=== PATIENT | female | born 1995 | race Caucasian/White ===

== ENCOUNTER 2020-12-02 07:21 | Emergency (ER) | payer MEDICAID, OTHER ==
[~2020-12-02] VITALS: Ht 157.5 cm; Wt 91.2 kg
[2020-12-02 07:28] VITALS: BP 99/64
[2020-12-02 08:22] LABS: BASOPHILS % (AUTO) 0.3 % (0.0-2.0); EOSINOPHILS # (AUTO) 0.1 K/uL (0-0.4); EOSINOPHILS % (AUTO) 0.8 % (0.0-4.0); LYMPHOCYTES # (AUTO) 2.1 K/uL (2.5-16.5); LYMPHOCYTES % (AUTO) 24.8 % (20.5-51.1); MEAN CORPUSCULAR HEMOGLOBIN 30 pg (27-31); MEAN CORPUSCULAR HGB CONC 34 g/dL (33-37); MEAN CORPUSCULAR VOLUME 88.8 fL (80-94); MONOCYTES # (AUTO) 0.5 K/uL (0.8-1.0); MONOCYTES % (AUTO) 5.6 % (1.7-9.3); NEUTROPHILS # (AUTO) 5.7 K/uL (1.8-7.7); NEUTROPHILS % (AUTO) 68.5 % (42.2-75.2); PLATELET COUNT (AUTO) 260 K/uL (140-450); RED BLOOD CELL COUNT(AUTO) 4.61 MIL/uL (4.20-5.40); WHITE BLOOD COUNT (AUTO) 8.3 K/uL (4.8-10.8)
[2020-12-02 08:27] LABS: BILIRUBIN,URINE NEGATIVE (NEGATIVE); BLOOD, URINE NEGATIVE (NEGATIVE); COLOR,URINE YELLOW (YELLOW); LEUKOCYTE ESTERASE ,URINE 1+ (NEGATIVE); NITRITE, URINE NEGATIVE (NEGATIVE); UGLUCOSE NEGATIVE (NEGATIVE)
[2020-12-02 08:28] LABS: APPEARANCE,URINE SLIGHTLY HAZY (CLEAR)
[2020-12-02 08:33] LABS: RBC,URINE 0-5 /HPF (0-5); WBC,URINE 0-5 /HPF (0-5)
[2020-12-02 10:25] VITALS: BP 99/64
== END 2020-12-02 10:25 | disposition home or self-care (01) ==
LOC: MED 07:21
DX: O26.891 Other specified pregnancy related conditions, first trimester (principal); R10.9 Unspecified abdominal pain; O21.9 Vomiting of pregnancy, unspecified; Z3A.09 9 weeks gestation of pregnancy
CPT/HCPCS: 36415; 76817; 81001; 81025; 84702; 85025; 86900; 86901; 87086; 99284

== ENCOUNTER 2021-01-17 23:14 | Emergency (ER) | payer OTHER ==
[~2021-01-17] VITALS: Ht 157.5 cm; Wt 89.8 kg
[2021-01-17 23:40] VITALS: BP 112/60
--- NOTE | 2021-01-17 23:43 | NUR ---
TO LOBBY A/W BED AMBULATORY
--- NOTE | 2021-01-18 00:45 | NUR ---
TO BED AMBULATORY
--- NOTE | 2021-01-18 00:55 | NUR ---
25 YO F BIB SELF WITH C/C OF VOMITTING X1DAY. PT STATED SHE IS 12 WKS . DENIES BEING SEEN YET FOR . -FEVER, COUGH. PT STATED THAT SHE HAS EPIGASTRIC PAIN 8/10 THAT RADIATES DOWN. PT STATES THAT SHE SEES LITTLE LIGHTS AND FEELS DIZZY. FALL PRECAUTIONS INITIATED. G 3 P0 A 1 L 3. PT PLACED IN GOWN. DENIES HX AND RX NKA
[2021-01-18 01:10] LABS: APPEARANCE,URINE CLEAR (CLEAR); BILIRUBIN,URINE 1+ (NEGATIVE); BLOOD, URINE NEGATIVE (NEGATIVE); COLOR,URINE YELLOW (YELLOW); LEUKOCYTE ESTERASE ,URINE TRACE (NEGATIVE); NITRITE, URINE NEGATIVE (NEGATIVE); UGLUCOSE NEGATIVE (NEGATIVE)
[2021-01-18 01:17] LABS: RBC,URINE 0-5 /HPF (0-5)
--- NOTE | 2021-01-18 01:32 | NUR ---
L&D RN AT BEDSIDE FOR T
[2021-01-18] MEDS ORDERED: ONDANSETRON 4 MG/2 ML VIAL IVP ONE (02:30)
[2021-01-18] MEDS ORDERED: ACETAMINOPHEN EXTRA STRENGTH 500 MG TAB PO ONE (02:30)
[2021-01-18] MEDS ORDERED: ONDANSETRON 4 MG ODT PO ONE (02:30)
[2021-01-18] MEDS ORDERED: NACL 0.9% 1,000 ML IV ONE (02:30)
--- NOTE | 2021-01-18 03:06 | NUR ---
PT IS SITTING UP IN BED. STATED SHE FEELS BETTER NOW. IS AT BED SIDE. BED LOCKED IN LOWEST POSITION, SIDE RAILS X2. ALL NEEDS MET AT THISTIME.
[2021-01-18] MEDS ORDERED: ONDA8TAB87 PO (03:29)
[2021-01-18] MEDS ORDERED: NITR100C7 PO (03:29)
[2021-01-18 03:37] VITALS: BP 112/60
--- NOTE | 2021-01-18 03:37 | NUR ---
Patient discharged with v/s stable. Written and verbal after care instructions given and explained. Patient alert, oriented and verbalized understanding of instructions. Ambulatory with steady gait. All questions addressed prior to discharge. ID band removed. Patient advised to follow up with PMD. Rx of MACROBID AND ZOFRAN given. Patient educated on indication of medication including possible reaction and side effects. Opportunity to ask questions provided and answered.
== END 2021-01-18 03:37 | disposition home or self-care (01) ==
LOC: MED 23:14
DX: O23.41 Unspecified infection of urinary tract in pregnancy, first trimester (principal); O21.8 Other vomiting complicating pregnancy; M54.5 Low back pain; Z3A.12 12 weeks gestation of pregnancy; Z90.49 Acquired absence of other specified parts of digestive tract
CPT/HCPCS: 81001; 81025; 87086; 96361; 96374; 99283; J2405; J7030

== ENCOUNTER 2022-06-01 16:12 | Observation (INO) | payer OTHER ==
[~2022-06-01] VITALS: Ht 153 cm; Wt 84.8 kg
[~2022-06-01 16:12] MED LIST: NITR100C7 PO; ONDA8TAB87 PO
--- NOTE | 2022-06-01 16:50 | NUR ---
PT TAKEN TO L&D
[2022-06-01 17:40] VITALS: BP 102/59
[2022-06-01] MEDS ORDERED: FERR-212 PO (18:04)
[2022-06-01] MEDS ORDERED: PRETAB PO (18:04)
[2022-06-01] MEDS ORDERED: OSC500 PO (18:04)
[2022-06-01] MEDS ORDERED: ACETAMINOPHEN 325 MG TAB ONE (18:28)
[2022-06-01] MEDS ORDERED: ACETAMINOPHEN 325 MG TAB PO ONE (18:30)
[2022-06-01] MEDS ORDERED: MUC600 PO (22:38)
[2022-06-01] MEDS ORDERED: TAM75 PO (22:38)
[2022-06-01] MEDS ORDERED: ACET-10509 PO (22:38)
[2022-06-01] MEDS ORDERED: ALBU0.0912 IH (22:38)
== END 2022-06-01 19:52 ==
LOC: MED 16:12 → MLD 16:55
PROVIDERS: ADMIT Obstetrics & Gynecology; ATTEND Obstetrics & Gynecology
DX: O36.8120 Decreased fetal movements, second trimester, not applicable or unspecified (principal); Z20.822 Contact with and (suspected) exposure to COVID-19; O26.892 Other specified pregnancy related conditions, second trimester; R50.9 Fever, unspecified; R05.9 Cough, unspecified; O99.891 Other specified diseases and conditions complicating pregnancy; M79.10 Myalgia, unspecified site; O99.512 Diseases of the respiratory system complicating pregnancy, second trimester; J00 Acute nasopharyngitis [common cold]; O26.812 Pregnancy related exhaustion and fatigue, second trimester; Z3A.22 22 weeks gestation of pregnancy
CPT/HCPCS: 76819; 87426; G0378; Q0092

== ENCOUNTER 2022-06-01 19:58 | Emergency (ER) | payer OTHER ==
[~2022-06-01] VITALS: Ht 160 cm; Wt 75.7 kg
[~2022-06-01 19:58] MED LIST changes: +FERR-212 PO; +OSC500 PO; +PRETAB PO
[2022-06-01 20:40] VITALS: BP 106/66
--- NOTE | 2022-06-01 20:44 | NUR ---
TO LOBBY A/W BED AMBULATORY
[2022-06-01] MEDS ORDERED: ACET-10509 PO (22:38)
[2022-06-01] MEDS ORDERED: ALBU0.0912 IH (22:38)
[2022-06-01] MEDS ORDERED: MUC600 PO (22:38)
[2022-06-01] MEDS ORDERED: TAM75 PO (22:38)
[2022-06-01 23:53] LABS: APPEARANCE,URINE CLEAR (CLEAR); BILIRUBIN,URINE NEGATIVE (NEGATIVE); BLOOD, URINE NEGATIVE (NEGATIVE); COLOR,URINE YELLOW (YELLOW); LEUKOCYTE ESTERASE ,URINE TRACE (NEGATIVE); NITRITE, URINE NEGATIVE (NEGATIVE); PH,URINE 6.5 (5.0-9.0); UGLUCOSE NEGATIVE (NEGATIVE)
[2022-06-01 23:58] LABS: RBC,URINE 0-5 /HPF (0-5); WBC,URINE 0-5 /HPF (0-5)
--- NOTE | 2022-06-02 00:12 | NUR ---
ERINN SEEN AND ASSESSED BY TRAE VERMA. Written and verbal after care instructions given and explained. Patient alert, oriented and verbalized understanding of instructions. Ambulatory with steady gait. All questions addressed prior to discharge. ID band removed. Patient advised to follow up with PMD. Rx of ACETAMINOPHEN, ALBUTEROL, MUCINEX, AND TAMIFLU given. Patient educated on indication of medication including possible reaction and side effects. Opportunity to ask questions provided and answered.
== END 2022-06-02 00:12 | disposition home or self-care (01) ==
LOC: MED 19:58
DX: J40 Bronchitis, not specified as acute or chronic (principal); J10.1 Influenza due to other identified influenza virus with other respiratory manifestations
CPT/HCPCS: 81001; 87086; 99283

== ENCOUNTER 2023-03-05 08:06 | Emergency (ER) | payer OTHER ==
[~2023-03-05] VITALS: Ht 152.4 cm; Wt 88.9 kg
[~2023-03-05 08:06] MED LIST changes: +ACET-10509 PO; +ALBU0.0912 IH; -FERR-212 PO; +MUC600 PO; -NITR100C7 PO; -ONDA8TAB87 PO; -OSC500 PO; -PRETAB PO; +TAM75 PO
[2023-03-05 08:41] VITALS: BP 128/74; PULSE 84; RESP 18; TEMP 98; O2SAT 98
[2023-03-05 10:16] VITALS: O2SAT 98
[2023-03-05] MEDS ORDERED: LIDOCAINE 5% 1 EA PATCH TP SCH (10:40)
[2023-03-05] MEDS ORDERED: KETOROLAC 30 MG/ML VIAL IM ONE (10:40)
[2023-03-05] MEDS ORDERED: IBUP-2218 PO (10:54)
[2023-03-05] MEDS ORDERED: CYCL-711 PO (10:54)
[2023-03-05] MEDS ORDERED: ACET-10509 PO (10:54)
[2023-03-05 11:35] VITALS: BP 121/75; PULSE 80; RESP 13; TEMP 97.8; O2SAT 99
== END 2023-03-05 11:35 | disposition home or self-care (01) ==
LOC: MED 08:06
DX: M54.41 Lumbago with sciatica, right side (principal); Z79.899 Other long term (current) drug therapy; Z79.1 Long term (current) use of non-steroidal anti-inflammatories (NSAID)
CPT/HCPCS: 81025; 96372; 99283; J1885

== ENCOUNTER 2023-06-23 12:33 | Emergency (ER) | payer OTHER ==
[~2023-06-23] VITALS: Ht 153.7 cm; Wt 88.0 kg
[~2023-06-23 12:33] MED LIST changes: +CYCL-711 PO; +IBUP-2218 PO
[2023-06-23 12:36] VITALS: BP 108/75; PULSE 73; RESP 20; TEMP 97.6; O2SAT 100
[2023-06-23 13:43] LABS: BILIRUBIN,URINE 1+ (NEGATIVE); BLOOD, URINE 3+ (NEGATIVE); COLOR,URINE YELLOW (YELLOW); LEUKOCYTE ESTERASE ,URINE TRACE (NEGATIVE); NITRITE, URINE NEGATIVE (NEGATIVE); PH,URINE 5.5 (5.0-9.0); PROTEIN,URINE TRACE (NEGATIVE); UGLUCOSE NEGATIVE (NEGATIVE); UROBILINOGEN,URINE 0.2 EU/dL (0.2 - 1)
[2023-06-23 14:17] LABS: APPEARANCE,URINE CLOUDY (CLEAR)
[2023-06-23 14:18] LABS: BACTERIA,URINE 10-30 (MOD) /HPF (None Seen); RBC,URINE 20-50 /HPF (0-5); SQUAMOUS EPITHELIAL CELL,UR 0-3 (FEW) /LPF (0-3 (FEW))
[2023-06-23 14:20] LABS: ICTOTEST NEGATIVE (NEGATIVE)
[2023-06-23] MEDS ORDERED: IBUP-2213 PO (14:27)
[2023-06-23] MEDS ORDERED: PYR100 PO (14:27)
[2023-06-23] MEDS ORDERED: NITR100C7 PO (14:27)
[2023-06-23 14:42] VITALS: BP 108/75; PULSE 73; RESP 20; TEMP 97.6; O2SAT 90
== END 2023-06-23 14:30 | disposition home or self-care (01) ==
LOC: MED 12:33
DX: N39.0 Urinary tract infection, site not specified (principal); Z79.899 Other long term (current) drug therapy; Z79.1 Long term (current) use of non-steroidal anti-inflammatories (NSAID); Z79.2 Long term (current) use of antibiotics
CPT/HCPCS: 81001; 81025; 87086; 99283

== ENCOUNTER 2023-08-07 09:37 | Emergency (ER) | payer OTHER ==
[~2023-08-07] VITALS: Ht 160 cm; Wt 90.3 kg
[~2023-08-07 09:37] MED LIST changes: +IBUP-2213 PO; +NITR100C7 PO; +PYR100 PO
[2023-08-07 09:59] VITALS: BP 107/71; PULSE 71; RESP 16; TEMP 98.2; O2SAT 98
[2023-08-07 11:55] LABS: FLU A ANTIGEN negative (NEGATIVE); FLU B ANTIGEN negative (NEGATIVE)
[2023-08-07] MEDS ORDERED: IBUP-2213 PO (12:45)
[2023-08-07] MEDS ORDERED: ACET-10509 PO (12:45)
[2023-08-07] MEDS: ACETAMINOPHEN EXTRA STRENGTH 500 MG TAB PO ONE (13:00)
== END 2023-08-07 13:20 | disposition home or self-care (01) ==
LOC: MED 09:37
DX: J06.9 Acute upper respiratory infection, unspecified (principal); Z20.822 Contact with and (suspected) exposure to COVID-19; Z79.899 Other long term (current) drug therapy
CPT/HCPCS: 99283

== ENCOUNTER 2024-02-23 03:05 | Emergency (ER) | payer OTHER ==
[~2024-02-23] VITALS: Ht 162.6 cm; Wt 92.1 kg
[~2024-02-23 03:05] MED LIST changes: -ACET-10509 PO; +ACET500T99 PO
[2024-02-23 03:13] VITALS: BP 99/51; PULSE 79; RESP 18; TEMP 98.4; O2SAT 100
[2024-02-23 03:48] VITALS: O2SAT 99
--- NOTE | 2024-02-23 03:48 | NUR ---
28F BIB SELF C.O UTI SX. PT STATES URINATION BURNING AND FREQUENCY. PT ALSO ENDORSES BURNING OF HER TONGUE WHEN SHE EATS. DENIES ANY OTHER SYMPTOMS AT THIS TIME. CALL LIGHT WITHIN REACH. SAFETY MEASURES IN PLACE. NKDA NO MED HX
[2024-02-23 03:50] LABS: APPEARANCE,URINE CLEAR (CLEAR); BILIRUBIN,URINE NEGATIVE (NEGATIVE); BLOOD, URINE 3+ (NEGATIVE); COLOR,URINE YELLOW (YELLOW); LEUKOCYTE ESTERASE ,URINE 2+ (NEGATIVE); NITRITE, URINE NEGATIVE (NEGATIVE); PROTEIN,URINE TRACE (NEGATIVE); UGLUCOSE NEGATIVE (NEGATIVE); UROBILINOGEN,URINE 0.2 EU/dL (0.2 - 1)
[2024-02-23 03:52] LABS: BACTERIA,URINE 10-30 (MOD) /HPF (None Seen); MUCUS,URINE 1+ /LPF (None Seen); SQUAMOUS EPITHELIAL CELL,UR 0-3 (FEW) /LPF (0-3 (FEW)); WBC,URINE TOO MANY TO COUNT /HPF (0-5)
[2024-02-23] MEDS ORDERED: CEPH-588 PO (03:58)
[2024-02-23] MEDS ORDERED: HYD1C TP (03:58)
--- NOTE | 2024-02-23 04:08 | NUR ---
Patient discharged with v/s stable. Written and verbal after care instructions given and explained. Patient verbalized understanding. Ambulatory with steady gait. All questions addressed prior to discharge. Advised to follow up with PMD.
== END 2024-02-23 04:08 | disposition home or self-care (01) ==
LOC: MED 03:05
DX: N39.0 Urinary tract infection, site not specified (principal); R21 Rash and other nonspecific skin eruption; Z79.899 Other long term (current) drug therapy
CPT/HCPCS: 81001; 81025; 87086; 87186; 99283